=== PATIENT | male | born 1945 | race Caucasian/White ===

== ENCOUNTER 2018-10-23 09:48 | Outpatient (REF) | payer MEDICARE, OTHER, SELFPAY ==
[2018-10-23 13:30] LABS: Cholesterol 191 mg/dL (50-200); HDL Cholesterol 59 mg/dL (40-60); LDL CHOLESTEROL 118 mg/dL (<100); Triglyceride 99 mg/dL (30-150)
== END 2018-10-23 10:08 ==
LOC: NCHCN 09:48
PROVIDERS: PCP Internal Medicine; Visit Provider Internal Medicine
DX: E78.89 Other lipoprotein metabolism disorders (principal)
CPT/HCPCS: 80061; 83721

== ENCOUNTER 2018-11-06 00:18 | Outpatient (CLI) | payer MEDICARE, OTHER, SELFPAY ==
--- NOTE | 2018-11-06 08:00 | DI.US_ITS ---
SYMPTOMS/DIAGNOSIS: FAMILY HX OF AAA, Z82.49, FORMER SMOKER QUIT > 1 YR, Z87.891 LIMITED ABDOMEN ULTRASOUND: There is no evidence of an abdominal aortic aneurysm. The iliac arteries are normal in diameter. IMPRESSION: No evidence of an abdominal aortic aneurysm.
== END 2018-11-06 00:38 ==
PROVIDERS: PCP Internal Medicine; Visit Provider Internal Medicine
DX: Z87.891 Personal history of nicotine dependence (principal); Z82.49 Family history of ischemic heart disease and other diseases of the circulatory system; Z13.6 Encounter for screening for cardiovascular disorders
CPT/HCPCS: 76706

== ENCOUNTER → 2020-01-23 13:23 | Outpatient (BNVA) | payer MEDICARE, OTHER, SELFPAY | PROVIDERS: PCP Internal Medicine; Referring Provider Internal Medicine; Visit Provider Surgery | DX: Z12.11 Encounter for screening for malignant neoplasm of colon (principal); Z86.010 Personal history of colon polyps | CPT/HCPCS: 99202 ==

== ENCOUNTER 2020-02-07 07:13 | Day surgery (SDC) | payer OTHER, SELFPAY ==
[2020-02-07 07:35] VITALS: BP 104/66; PULSE 52; RESP 16; TEMP 36.3; O2SAT 98
[2020-02-07] MEDS: Lactated Ringers 1,000 ML 100 ML IV (08:02)
--- NOTE | 2020-02-07 08:45 | BOWEL_PTH ---
PATIENT: Avila Trinh LOC: [facility] U#:[id number] AGE/SX: 74/M ROOM: RE02/07/[address]: Pia Stacy : 1945 BED: DIS: 02/07/2020 SPEC #: [id number] RECD: 02/07/20 12:28 STATUS: DEVORAH REQ #: [id number] SUSY: 02/07/20 08:[address]: Pia Stacy DEPT: Surgical Specimen RECD BY: Alexandra Cordero ENTERED: 02/07/20 12:34 SP TYPE: Bowel OTHR DR: Paul Chi Tissues: 1 - BIOPSY BOWEL 2 - BIOPSY BOWEL Procedures: GROSS AND MICRO LEVEL 4 Comments: [id number]
--- NOTE | 2020-02-07 09:15 | W.COLOREPORT ---
Date of service: 02/07/20 Time of Service: 09:15 Colonoscopy Report Date of procedure: 02/07/20 Pre-op diagnosis general: A. polyps Post-op diagnosis procedure note: other (polyps) Procedure: CE Surgeon: Pia Stacy Anesthesia proc note operative: MAC Estimated blood loss (mL): 2 Pathology: other Complications: None Disposition: same day Prep: Miralax/Dulcolax Retraction Time: 15mins Procedure Description: After informed consent was obtained the patient was taken to the procedure room and placed in a left decubitous position. Monitors were applied and a time out was done. The patients name, date of , procedure, allergies to medications and metal in their body was reviewed. The patient was then sedated. Once sedated and comfortable a rectal exam was done. External exam was grade II hemorrhoids. Internal exam revealed a normal sphincter tone and no palpable masses. The scope was then introduced and retrofelexed. no internal hemorrhoids were identified. The scope was then advanced to the cecum w/ some difficulty- very torteous. . The TI and appendiceal orifice were identified. The prep was good. The scope was then slowly retracted over 15 minutes back into the rectum. Polyps were removed throat area patient had a 1cm flat polyp at 70 cm. This is removed with a hot biting snare. No bleeding is noted and specimen is retrieved. Once I get to the cecum there is another flat lesion. It is hypervascular. it is about 2cm It is unclear if this is a polyp or a AVM. It does not have the usual characteristics of either and a AVM or a polyp. This is biopsied and fulgurated. All specimens retrieved and no bleeding is noted. There are no diverticula in the sigmoid colon. The mucosa is otherwise pink and healthy. The scope was removed and the patient was woken up and taken back to Same day surgery in stable condition. The patient tolerated the procedure well and there were no immediate complications. Follow up: The patient should follow up in 3-5 years-path pd, unless they develop changes in bowel habits or other new gastrointestinal complaints.
[2020-02-07 09:50] VITALS: BP 105/67; PULSE 40; RESP 15; TEMP 36.2; O2SAT 99
--- NOTE | 2020-02-07 10:23 | W.PM.DSUDISC ---
Discharge Plan Disposition Patient Disposition: HOME Condition: Good Discharge Details Reason For Visit: colon scope Attending Provider: Pia Stacy Primary Care Provider: Paul Chi Home Meds and New Rx's Prescriptions: Discontinued bisacodyl [Dulcolax (bisacodyl)] 5 mg tablet,delayed release (DR/EC) 5 mg PO ONCE Qty: 4 RF: 0 polyethylene glycol 3350 17 gram/dose powder 17 g PO ONCE Qty: 238 RF: 0 Discharge Instructions Additional Instructions: Findings: x2 polyps no ASA/NSAID's for 2 wks. low fiber diet x 72 hrs No lifting over 20 pounds or strenuous activity x72 hours. Follow up:2-3 wks Please call if you develop: fevers >101.5 Nausea or Vomiting Abdominal pain that is not transient DAY SURGERY UNIT POST COLONOSCOPY INSTRUCTIONS 1. Because there will be medication in your system for the next 24 hours, you may feel a little sleepy. Your coordination will be affected. Therefore: a. Do not drive or operate dangerous equipment for 24 hours. b. Do not drink alcohol beverages for 24 hours (not even beer). c. Plan to go home and rest for the day. 2. Generally there are no restrictions on your activity after a day or so has gone by, but you may feel a bit fatigued for a few days. 3 After you arrive home you may have a light meal and return to a normal diet as you can tolerate it without feeling sick to your stomach. 4. After surgery, you may feel pain or discomfort. This should be only transient, but if it persists please contact your doctor. 5. If there are any questions regarding the findings of your procedure, please feel free to contact your doctor. 6. If you are unable to contact your doctor with a problem, contact the hospital at [phone]. 7. Continue all your regular medications unless directed otherwise. I understand the above instructions and have no questions. Signature of Patient or Responsible Adult Escort Date/Time Name of Responsible Adult Escort Signature of Nurse Date/Time Activity:: No lifting over 20 pounds or strenuous activity x72 hours Diet:: Small light meals x24 hours. Low fiber diet for 72 hours Discharge Orders Discharge Orders: Discharge Order (Routine); Ordered 02/07/20 Ordered By: Pia Stacy DS: Diagnosis Discharge Diagnosis (1) Tubular adenoma: Status: Acute
== END 2020-02-07 10:41 | disposition home or self-care (01) ==
PROVIDERS: PCP Internal Medicine; Visit Provider Surgery
PROC: 0DJD8ZZ Inspection of Lower Intestinal Tract, Via Natural or Artificial Opening Endoscopic (ICD-10-PCS; CPT 45378; principal; 2020-02-07 08:30)
DX: Z12.11 Encounter for screening for malignant neoplasm of colon (principal); Z86.010 Personal history of colon polyps; D12.6 Benign neoplasm of colon, unspecified; Q43.8 Other specified congenital malformations of intestine
CPT/HCPCS: 45385; 45384; 88305; J2001

== ENCOUNTER 2023-11-03 16:56 | Outpatient (REF) | payer OTHER, SELFPAY ==
[2023-11-03 15:42] LABS: Abs Immature Grans 0.01 10^3/uL (0.0-0.06); Absolute Basophil Count 0.02 10^3/uL (0.0-0.2); Absolute Eosinophil Count 0.13 10^3/uL (0.0-0.7); Absolute Monocyte Count 0.34 10^3/uL (0.1-0.8); Basophils % 0.6; Eosinophils % 3.7; HCT 42.6 % (40.0-50.0); HGB 14.3 g/dL (13.5-17.5); Immature Grans % 0.3; Lymphocytes % 25.7; MCH 33.7 pg (27.0-33.0); MCHC 33.6 % (32.0-36.0); MCV 101 fL (80-95); MPV 10.2 fL (8.0-11.0); Monocytes % 9.7; Platelet Count 214 10^3/uL (130-400); RBC 4.24 10^6/uL (4.36-5.78); RDW 11.4 % (11.8-14.1)
[2023-11-03 15:44] LABS: Anion Gap 6.7 mmol/L (3-11); BUN 24 mg/dL (7-18); CO2 28.3 mmol/L (21.0-32.0); CREATININE 0.7 mg/dL (0.70-1.30); Calcium 8.7 mg/dL (8.5-10.1); Chloride 107 mmol/L (98-107); Glucose 94 mg/dL (74-106); Potassium 4.7 mmol/L (3.5-5.1); Sodium 142 mmol/L (136-145)
== END 2023-11-03 16:57 | disposition home or self-care (01) ==
LOC: NCHCN 16:56
PROVIDERS: PCP Internal Medicine; Visit Provider Family Medicine
DX: Z00.00 Encounter for general adult medical examination without abnormal findings (principal)
CPT/HCPCS: 80048; 85025

== ENCOUNTER → 2023-11-28 02:25 | Outpatient (CLI) | payer OTHER, SELFPAY ==
--- NOTE | 2023-11-28 | DI.RAD_ITS ---
Exam(s) XR KNEE LT 4V AP,LAT,ANTHONY,PAT EXAM: XR KNEE LT 4V AP,LAT,ANTHONY,PAT CLINICAL HISTORY: LT KNEE PAIN, M25.569. TECHNIQUE: 2D digital imaging was performed of the left knee. Four images were obtained. Merchant, AP, lateral and PA tunnel views were obtained. COMPARISON: No exams were available for comparison FINDINGS: BONES: No acute fracture is present. No bony destructive lesion is seen. JOINTS: There is mild spurring of the posterior patella. There is mild narrowing of the femoral tibi al joint. no joint effusion is seen. No loose body. SOFT TISSUE: Vascular calcifications are present. IMPRESSION: Mild degenerative changes of the knee. DATA REPOSITORY: RADIATION DOSE DELIVERED:
== END ==
PROVIDERS: PCP Internal Medicine; Visit Provider Family Medicine
DX: M17.12 Unilateral primary osteoarthritis, left knee (principal)
CPT/HCPCS: 73564